=== PATIENT | male | born 1980 | race Native Hawaiian/Other Pacific Islander ===

== ENCOUNTER 2018-03-28 07:16 | Day surgery (SDC) | payer OTHER ==
[~2018-03-28] VITALS: Wt 101.5 kg
[2018-03-28] MEDS ORDERED: XARELTO20 MG PO (07:45)
[2018-03-28] MEDS ORDERED: TOPROL XL 25MG25 MG PO (07:46)
[2018-03-28 07:49] VITALS: BP 118/77; PULSE 65; TEMP 98.1
[2018-03-28 08:19] LABS: HEMATOCRIT 42.4 % (42.0-52.0); HEMOGLOBIN 13.6 g/dl (13.5-18.0); MEAN CELL VOLUME 81 fl (80.0-100.0); MEAN CORPUSCULAR HEMOGLOBIN 26 pg (27.0-31.0); MEAN CORPUSCULAR HGB CONC 32 g/dl (33.0-37.0); MEAN PLATELET VOLUME 9.2 fl (7.4-10.4); PLATELET COUNT 291 K/mm3 (130-400); RED BLOOD COUNT 5.21 M/mm3 (4.20-5.60); REDCELL DISTRIBUTION WIDTH-CV 13.3 % (11.5-14.5)
[2018-03-28 08:23] LABS: INR 1.1 (0.8-3.0); PROTHROMBIN TIME 12.8 SECONDS (9.7-12.8)
[2018-03-28 08:31] LABS: CALCIUM 8.7 mg/dL (8.4-10.2); POTASSIUM 3.9 mmol/L (3.4-5.0)
[2018-03-28] MEDS ORDERED: TAMBOCOR 1100 MG/TAB PO (08:44)
[2018-03-28] MEDS ORDERED: ASPI325T6 PO (08:45)
== END 2018-03-28 10:41 | disposition home or self-care (01) ==
LOC: COL.CAR 07:16
PROVIDERS: Internal Medicine Cardiovascular Disease
DX: I48.91 Unspecified atrial fibrillation (principal); R00.1 Bradycardia, unspecified; Z82.49 Family history of ischemic heart disease and other diseases of the circulatory system; Z79.01 Long term (current) use of anticoagulants; Z53.8 Procedure and treatment not carried out for other reasons